=== PATIENT | male | born 1960 | race African-American/Black ===

== ENCOUNTER → 2017-01-13 | Outpatient (CLI) | payer BC ==
[~2017-01-13] MED LIST: ACTOS 15MG TAB15 MG PO; ALDACTONE 25MG25 M1 PO; ASCRIPTIN1 TA1 PO; ASPIRIN E.C. 8181 MG PO; BLOOD SUGAR MED; COZAAR100 MG PO; HYZAAR; LAMISIL AT1%; LAMISIL1% TOP; LASIX 40MG TABL40 MG PO; LEVEMIR FLEXPEN SQ; LEVOTHROID0.125 MG PO; LEVOXYL0.125 MG PO; LOPRESSOR100 MG PO; MAALOX PLUS 3030 ML PO; NITROSTAT0.4 MG/TAB SL; NORVASC 10MG10 MG PO; NOVOLOG FLEX100 U/ML SQ; PHARMASSURE V PO; PRILOSEC 20MG20 MG PO; PRINIVIL10 MG PO; PROTONIX 40MG T40 MG PO; PROTONIX20 MG PO; SYNTHROID0.112 MG/T PO; VITAMIN D32000 IU PO; ZOCOR 10MG10 MG PO; ZOCOR 40MG40 MG PO; ZYLOPRIM 300MG300 MG PO
== END ==
LOC: COL.VAS 12:30
DX: M17.11 Unilateral primary osteoarthritis, right knee (principal); Z96.653 Presence of artificial knee joint, bilateral; M79.604 Pain in right leg; M25.562 Pain in left knee

== ENCOUNTER → 2017-10-14 | Outpatient (CLI) | payer BC ==
[2017-10-14 17:04] LABS: HEMATOCRIT 39.4 % (42.0-52.0); MEAN CELL VOLUME 84 fl (80.0-100.0); MEAN CORPUSCULAR HEMOGLOBIN 28 pg (27.0-31.0); MEAN CORPUSCULAR HGB CONC 33 g/dl (33.0-37.0); MEAN PLATELET VOLUME 11.6 fl (7.4-10.4); PLATELET COUNT 180 K/mm3 (130-400); RED BLOOD COUNT 4.67 M/mm3 (4.20-5.60); REDCELL DISTRIBUTION WIDTH-CV 14.3 % (11.5-14.5)
[2017-10-14 17:11] LABS: URIC ACID 8.7 mg/dL (3.5-8.5)
[2017-10-14 17:20] LABS: C-REACTIVE PROTEIN 0.7 mg/dL (0.0-0.9)
[2017-10-14 17:23] LABS: ERYTHROCYTE SEDIMENTATION RATE 24 mm/hr (0-30)
== END ==
LOC: COL.LAB 16:41
PROVIDERS: Orthopaedic Surgery
DX: M25.562 Pain in left knee (principal); M25.561 Pain in right knee

== ENCOUNTER 2018-02-12 18:53 | Emergency (ER) | payer OTHER, BC ==
[~2018-02-12] VITALS: Ht 188 cm; Wt 114.5 kg
[~2018-02-12 18:53] MED LIST changes: +LEVEMIR FLEX100 U/ML; -LEVEMIR FLEXPEN SQ
[2018-02-12 18:56] VITALS: TEMP 97.7
[2018-02-12 19:32] LABS: BASO % 0.3 % (0.0-2.0); EOS # 0.1 (0.0-0.7); EOS % 1.5 % (0-4.0); GRAN # 3.4 (1.4-6.5); GRAN % 56.6 % (42.2-75.2); HEMOGLOBIN 12.1 g/dl (13.5-18.0); LYMPH % 33.3 % (20.0-51.0); MEAN CELL VOLUME 85 fl (80.0-100.0); MEAN CORPUSCULAR HEMOGLOBIN 28 pg (27.0-31.0); MEAN CORPUSCULAR HGB CONC 33 g/dl (33.0-37.0); MEAN PLATELET VOLUME 12.5 fl (7.4-10.4); MONO # 0.4 (0.1-0.6); MONO % 7.3 % (1.7-9.3); PLATELET COUNT 166 K/mm3 (130-400); RED BLOOD COUNT 4.33 M/mm3 (4.20-5.60); REDCELL DISTRIBUTION WIDTH-CV 14.1 % (11.5-14.5)
[2018-02-12 19:43] LABS: HEMATOCRIT 36.7 % (42.0-52.0)
[2018-02-12 19:45] LABS: INR 0.9 (0.8-3.0); PROTHROMBIN TIME 10.4 SECONDS (9.7-12.8)
[2018-02-12 19:47] LABS: ALANINE AMINOTRANSFERASE 70 U/L (21-72); ALBUMIN 3.8 gm/dL (3.5-5.0); ALKALINE PHOSPHATASE 61 U/L (50-136); ANION GAP 6 mmol/L (7-16); AST,SGOT 75 U/L (15-37); BILIRUBIN,TOTAL 0.3 mg/dL (0.0-1.0); BLOOD UREA NITROGEN 23 mg/dL (9-20); CALCIUM 9.5 mg/dL (8.4-10.2); CARBON DIOXIDE 26 mmol/L (22-30); CHLORIDE 109 mmol/L (98-107); CREATININE, serum 1.27 mg/dL (0.66-1.25); GLUCOSE 118 mg/dL (74-106); POTASSIUM 4.2 mmol/L (3.4-5.0); SODIUM 142 mmol/L (137-145); TOTAL PROTEIN 7.2 gm/dL (6.4-8.2)
[2018-02-12 19:51] LABS: C-REACTIVE PROTEIN 0.5 mg/dL (0.0-0.9)
[2018-02-12 20:00] LABS: TROPONIN-I < 0.012 ng/mL (0.000-0.034)
[2018-02-12 20:07] LABS: ARTERIAL BLD GAS O2 SATURATION 94.1 % (92-100); ARTERIAL BLD GAS TCO2 CT 27.5; ARTERIAL BLOOD GAS BASE EXCESS 0.5 (-2-2); ARTERIAL BLOOD GAS HCO3 26.1 meq/L (22-26); ARTERIAL BLOOD GAS PCO2 45.7 mmHg (35-45); ARTERIAL BLOOD GAS PO2 75.4 mmHg (80-100); ARTERIAL BLOOD GAS pH 7.37 (7.35-7.45)
[2018-02-12] MEDS ORDERED: CAPSAICIN60 GM TP (20:26)
[2018-02-12] MEDS ORDERED: SENOKOT S 50 MG1 TAB PO (20:27)
[2018-02-12] MEDS ORDERED: FLONASE SENSIM9.9 ML NS (20:27)
[2018-02-12] MEDS ORDERED: GLUMETZA1000 MG PO (20:31)
[2018-02-12] MEDS ORDERED: VIAGRA100 M1 (20:33)
[2018-02-12] MEDS ORDERED: SYNTHROID0.112 MG/T PO (20:34)
[2018-02-12] MEDS ORDERED: LEVOXYL0.112 MG PO (20:34)
[2018-02-12] MEDS ORDERED: GLUCOSE4 G1 (20:35)
[2018-02-12] MEDS ORDERED: NORCO 325 MG-51 TAB PO (23:21)
[2018-02-12] MEDS ORDERED: ZITHROMAX Z PA250 MG PO (23:21)
[2018-02-12] MEDS ORDERED: FLEXERIL 1010 MG/TAB PO (23:21)
[2018-02-12 23:51] VITALS: BP 164/92; PULSE 60
== END 2018-02-12 23:51 | disposition home or self-care (01) ==
LOC: COL.ER 18:53
PROVIDERS: Emergency Medicine
DX: J18.9 Pneumonia, unspecified organism (principal); J98.11 Atelectasis; R07.89 Other chest pain; K21.9 Gastro-esophageal reflux disease without esophagitis; I10 Essential (primary) hypertension; E11.9 Type 2 diabetes mellitus without complications; E78.5 Hyperlipidemia, unspecified; E03.9 Hypothyroidism, unspecified; Z86.73 Personal history of transient ischemic attack (TIA), and cerebral infarction without residual deficits; Z87.891 Personal history of nicotine dependence; Z79.4 Long term (current) use of insulin; Z79.84 Long term (current) use of oral hypoglycemic drugs; Z98.890 Other specified postprocedural states
CPT/HCPCS: A4216; A9284; J0696; J2405; J3010; J7030; Q9967

== ENCOUNTER 2018-06-23 15:00 | Outpatient (RCR) | payer BC ==
[~2018-06-23 15:00] MED LIST changes: +CAPSAICIN60 GM TP; +FLEXERIL 1010 MG/TAB PO; +FLONASE SENSIM9.9 ML NS; +GLUCOSE4 G1; +GLUMETZA1000 MG PO; +LEVOXYL0.112 MG PO; +NORCO 325 MG-51 TAB PO; +SENOKOT S 50 MG1 TAB PO; +VIAGRA100 M1; +ZITHROMAX Z PA250 MG PO
[2018-06-25] MEDS ORDERED: INDOCIN 25MG CA25 MG PO (15:46)
[2018-06-25] MEDS ORDERED: NORCO 325 MG-51 TAB PO (15:51)
== END 2018-06-30 | disposition home or self-care (01) ==
LOC: WSC
DX: M25.562 Pain in left knee (principal); M25.561 Pain in right knee; G89.29 Other chronic pain; Z96.653 Presence of artificial knee joint, bilateral; Z98.890 Other specified postprocedural states

== ENCOUNTER 2018-06-25 12:16 | Emergency (ER) | payer OTHER, BC ==
[~2018-06-25] VITALS: Ht 188 cm; Wt 113.6 kg
[2018-06-25 12:25] VITALS: TEMP 100.9
[2018-06-25 12:41] LABS: EOS % 0.8 % (0-4.0); GRAN # 3.7 (1.4-6.5); GRAN % 74.7 % (42.2-75.2); HEMATOCRIT 38.1 % (42.0-52.0); HEMOGLOBIN 12.4 g/dl (13.5-18.0); LYMPH # 0.9 (1.2-3.4); LYMPH % 17.9 % (20.0-51.0); MEAN CELL VOLUME 85 fl (80.0-100.0); MEAN CORPUSCULAR HEMOGLOBIN 28 pg (27.0-31.0); MEAN CORPUSCULAR HGB CONC 33 g/dl (33.0-37.0); MEAN PLATELET VOLUME 12.2 fl (7.4-10.4); MONO # 0.3 (0.1-0.6); PLATELET COUNT 157 K/mm3 (130-400); RED BLOOD COUNT 4.48 M/mm3 (4.20-5.60); REDCELL DISTRIBUTION WIDTH-CV 14.6 % (11.5-14.5)
[2018-06-25 12:50] LABS: ALANINE AMINOTRANSFERASE 53 U/L (21-72); ALBUMIN 3.7 gm/dL (3.5-5.0); ALKALINE PHOSPHATASE 51 U/L (50-136); ANION GAP 8 mmol/L (7-16); AST,SGOT 54 U/L (15-37); BILIRUBIN,TOTAL 0.5 mg/dL (0.0-1.0); BLOOD UREA NITROGEN 21 mg/dL (9-20); CALCIUM 9.6 mg/dL (8.4-10.2); CARBON DIOXIDE 25 mmol/L (22-30); CHLORIDE 104 mmol/L (98-107); CREATININE, serum 1.02 mg/dL (0.66-1.25); GLUCOSE 225 mg/dL (74-106); LIPASE 62 U/L (23-300); POTASSIUM 5.1 mmol/L (3.4-5.0); SODIUM 137 mmol/L (137-145); TOTAL PROTEIN 7.4 gm/dL (6.4-8.2)
[2018-06-25 12:53] LABS: PROTHROMBIN TIME 11.9 SECONDS (9.7-12.8)
[2018-06-25 13:02] LABS: TROPONIN-I < 0.012 ng/mL (0.000-0.035)
[2018-06-25] MEDS ORDERED: INDOCIN 25MG CA25 MG PO (15:46)
[2018-06-25] MEDS ORDERED: NORCO 325 MG-51 TAB PO (15:51)
[2018-06-25 16:01] VITALS: BP 162/85; PULSE 88
== END 2018-06-25 16:02 | disposition home or self-care (01) ==
LOC: COL.ER 12:16
PROVIDERS: Emergency Medicine
DX: K85.90 Acute pancreatitis without necrosis or infection, unspecified (principal); Z79.4 Long term (current) use of insulin; Z79.51 Long term (current) use of inhaled steroids
CPT/HCPCS: J1885; J2270; J7030; Q9967

== ENCOUNTER → 2018-07-05 | Outpatient (CLI) | payer BC ==
[~2018-07-05] MED LIST changes: +INDOCIN 25MG CA25 MG PO
[2018-07-05 16:45] LABS: CREATININE, serum 1.15 mg/dL (0.66-1.25)
== END ==
LOC: COL.LAB 15:51
PROVIDERS: Internal Medicine Interventional Cardiology
DX: I30.9 Acute pericarditis, unspecified (principal)

== ENCOUNTER 2018-07-26 09:49 | Emergency (ER) | payer BC ==
[~2018-07-26] VITALS: Ht 188 cm; Wt 109.1 kg
[2018-07-26 10:16] LABS: BASO % 0.4 % (0.0-2.0); EOS % 1.4 % (0-4.0); GRAN % 69.9 % (42.2-75.2); HEMOGLOBIN 11.7 g/dl (13.5-18.0); LYMPH # 0.6 (1.2-3.4); LYMPH % 20.4 % (20.0-51.0); MEAN CELL VOLUME 85 fl (80.0-100.0); MEAN CORPUSCULAR HEMOGLOBIN 27 pg (27.0-31.0); MEAN CORPUSCULAR HGB CONC 32 g/dl (33.0-37.0); MONO # 0.2 (0.1-0.6); MONO % 6.8 % (1.7-9.3); PLATELET COUNT 250 K/mm3 (130-400); RED BLOOD COUNT 4.34 M/mm3 (4.20-5.60); REDCELL DISTRIBUTION WIDTH-CV 14.5 % (11.5-14.5)
[2018-07-26 10:17] LABS: HEMATOCRIT 36.7 % (42.0-52.0)
[2018-07-26 10:26] LABS: ALANINE AMINOTRANSFERASE 27 U/L (21-72); ALBUMIN 3.7 gm/dL (3.5-5.0); ALKALINE PHOSPHATASE 57 U/L (50-136); ANION GAP 9 mmol/L (7-16); AST,SGOT 45 U/L (15-37); BILIRUBIN,TOTAL 0.5 mg/dL (0.0-1.0); BLOOD UREA NITROGEN 27 mg/dL (9-20); C-REACTIVE PROTEIN 6.1 mg/dL (0.0-0.9); CALCIUM 9.3 mg/dL (8.4-10.2); CARBON DIOXIDE 22 mmol/L (22-30); CHLORIDE 106 mmol/L (98-107); CREATININE, serum 1.18 (0.66-1.25); GLUCOSE 171 mg/dL (74-106); LIPASE 86 U/L (23-300); SODIUM 137 mmol/L (137-145); TOTAL PROTEIN 7.8 gm/dL (6.4-8.2)
[2018-07-26 10:35] LABS: ERYTHROCYTE SEDIMENTATION RATE 90 mm/hr (0-30)
[2018-07-26 10:43] LABS: TROPONIN-I < 0.012 ng/mL (0.000-0.035)
[2018-07-26 15:23] VITALS: BP 126/64; PULSE 80; TEMP 97.5
== END 2018-07-26 15:23 | disposition short-term general hospital (02) ==
LOC: COL.ER 09:49
PROVIDERS: Emergency Medicine
DX: I31.9 Disease of pericardium, unspecified (principal); I10 Essential (primary) hypertension; E11.9 Type 2 diabetes mellitus without complications; I25.10 Atherosclerotic heart disease of native coronary artery without angina pectoris; E78.5 Hyperlipidemia, unspecified; F17.210 Nicotine dependence, cigarettes, uncomplicated; Z79.4 Long term (current) use of insulin
CPT/HCPCS: J1885; J2270; J2405; J7030; Q9967

== ENCOUNTER → 2018-09-02 | Outpatient (CLI) | payer BC | LOC: COL.LAB 11:47 | PROVIDERS: Internal Medicine Pulmonary Disease | DX: R06.02 Shortness of breath (principal) ==

== ENCOUNTER 2021-06-25 11:21 | Emergency (ER) | payer OTHER ==
[~2021-06-25] VITALS: Ht 188 cm; Wt 118.2 kg
[2021-06-25 11:36] VITALS: TEMP 98.3
[2021-06-25 12:29] LABS: BASO % 0.6 % (0.0-2.0); EOS # 0.3 K/mm3 (0.0-0.7); GRAN # 2.6 K/mm3 (1.4-6.5); GRAN % 53.7 % (42.2-75.2); HEMOGLOBIN 10.3 g/dl (13.5-18.0); LYMPH # 1.4 K/mm3 (1.2-3.4); LYMPH % 27.8 % (20.0-51.0); MEAN CELL VOLUME 78 fl (80.0-100.0); MEAN CORPUSCULAR HEMOGLOBIN 23 pg (27-31); MEAN CORPUSCULAR HGB CONC 30 g/dl (33.0-37.0); MEAN PLATELET VOLUME 12.2 fl (7.4-10.4); MONO # 0.6 K/mm3 (0.1-0.6); MONO % 11.5 % (1.7-9.3); PLATELET COUNT 175 K/mm3 (130-400); RED BLOOD COUNT 4.48 M/mm3 (4.20-5.60)
[2021-06-25 12:30] LABS: HEMATOCRIT 34.8 % (42.0-52.0)
[2021-06-25 12:40] LABS: ALBUMIN 3.7 gm/dL (3.4-4.8); BILIRUBIN,TOTAL 0.3 mg/dL (0.2-1.2); CALCIUM 9.1 mg/dL (8.4-10.2); CREATININE, serum 1.03 mg/dL (0.72-1.25); POTASSIUM 4.5 mmol/L (3.5-4.5); TOTAL PROTEIN 7.7 gm/dL (6.2-8.1)
[2021-06-25 14:04] VITALS: BP 139/99; PULSE 67
== END 2021-06-25 14:04 | disposition home or self-care (01) ==
LOC: COL.ER 11:21
PROVIDERS: Emergency Medicine
DX: R05.9 Cough, unspecified (principal)
CPT/HCPCS: Q9967

== ENCOUNTER 2021-10-18 12:31 | Emergency (ER) | payer OTHER ==
[~2021-10-18] VITALS: Ht 188 cm; Wt 118.2 kg
[2021-10-18 13:36] LABS: BASO % 0.8 % (0.0-2.0); EOS # 0.1 K/mm3 (0.0-0.7); EOS % 3.7 % (0.0-4.0); GRAN % 53.2 % (42.2-75.2); HEMATOCRIT 38.8 % (42.0-52.0); HEMOGLOBIN 12.1 g/dl (13.5-18.0); LYMPH # 1.2 K/mm3 (1.2-3.4); MEAN CELL VOLUME 79 fl (80.0-100.0); MEAN CORPUSCULAR HEMOGLOBIN 25 pg (27-31); MEAN CORPUSCULAR HGB CONC 31 g/dl (33.0-37.0); MONO # 0.4 K/mm3 (0.1-0.6); PLATELET COUNT 114 K/mm3 (130-400); REDCELL DISTRIBUTION WIDTH-CV 22.7 % (11.5-14.5)
[2021-10-18 13:49] LABS: ALANINE AMINOTRANSFERASE 43 U/L (0-55); ALBUMIN 3.5 gm/dL (3.4-4.8); ALKALINE PHOSPHATASE 62 U/L (40-150); ANION GAP 8 mmol/L (7-16); AST,SGOT 41 U/L (5-34); BILIRUBIN,TOTAL 0.2 mg/dL (0.2-1.2); BLOOD UREA NITROGEN 18 mg/dL (8-26); CALCIUM 9.1 mg/dL (8.4-10.2); CARBON DIOXIDE 23 mmol/L (23-31); CHLORIDE 108 mmol/L (98-107); CREATININE, serum 1.12 mg/dL (0.72-1.25); GLUCOSE 259 mg/dL (70-99); POTASSIUM 4.5 mmol/L (3.5-4.5); SODIUM 139 mmol/L (136-145); TOTAL PROTEIN 6.7 gm/dL (6.2-8.1)
[2021-10-18 14:02] LABS: TROPONIN-I < 0.010 ng/mL (0.00-0.033)
[2021-10-18 14:48] VITALS: BP 152/80; PULSE 54
--- NOTE | 2021-10-18 15:54 | NUR ---
KEYUR met with patient after ED physician consulted me. SW met with patient who stated that he had a stent placed in February and has been having groin pain since. He states that he has reached out to his surgeon (Dr. Pablo) at [facility] in [place] who tells him to reach out to his PCP. He states that when he reaches out to his PCP they tell him to talk with his surgeon. Patient ultimately feels like he is being passed around. Patient reports that his PCP has placed in a consult for the community care team for a referral to a vascular surgeon but has not heard anything as of yet. [facility] [place] [facility] of [facility]. KEYUR advised that [facility] would [facility] on Wednesday and call him with what i know.
== END 2021-10-18 14:51 | disposition home or self-care (01) ==
LOC: COL.ER 12:31
PROVIDERS: Physician Assistant
DX: I72.4 Aneurysm of artery of lower extremity (principal); R07.9 Chest pain, unspecified; Z28.310 Unvaccinated for COVID-19

== ENCOUNTER 2021-12-02 20:27 | Emergency (ER) | payer OTHER ==
[~2021-12-02] VITALS: Ht 188 cm; Wt 119.5 kg
[2021-12-02 20:42] VITALS: TEMP 98
[2021-12-02 21:49] LABS: BILIRUBIN,TOTAL 0.3 mg/dL (0.2-1.2); CALCIUM 9.5 mg/dL (8.4-10.2); CREATININE, serum 1.22 mg/dL (0.72-1.25); HEMATOCRIT 41.9 % (42.0-52.0); HEMOGLOBIN 13.5 g/dl (13.5-18.0); MEAN CELL VOLUME 83 fl (80.0-100.0); MEAN CORPUSCULAR HEMOGLOBIN 27 pg (27-31); MEAN CORPUSCULAR HGB CONC 32 g/dl (33.0-37.0); PLATELET COUNT 110 K/mm3 (130-400); POTASSIUM 4.5 mmol/L (3.5-4.5); RED BLOOD COUNT 5.03 M/mm3 (4.20-5.60); REDCELL DISTRIBUTION WIDTH-CV 18.9 % (11.5-14.5); TOTAL PROTEIN 7.1 gm/dL (6.2-8.1)
[2021-12-02 21:54] LABS: TROPONIN-I 0.015 ng/mL (0.00-0.033)
[2021-12-02 22:08] LABS: ALBUMIN 3.7 gm/dL (3.4-4.8)
[2021-12-02 22:50] LABS: BAND 3 % (0-10); EOSINOPHIL 3 % (0-4); LYMPHOCYTE 31 % (20.0-51.0); NEUTROPHILS 52 % (42.0-75.2)
[2021-12-02 22:55] LABS: ANISOCYTOSIS 2+; HYPOCHROMIA 1+; PLATELET ESTIMATE NORMAL (NORMAL); TEAR DROP CELLS 1+
[2021-12-03] MEDS ORDERED: FLEXERIL 1010 MG/TAB PO (00:12)
[2021-12-03] MEDS ORDERED: LIDODERM 5% PATC1 EA TP (00:12)
[2021-12-03 00:16] VITALS: BP 185/91; PULSE 58
== END 2021-12-03 00:25 | disposition home or self-care (01) ==
LOC: COL.ER 20:27
PROVIDERS: Emergency Medicine
DX: S39.012A Strain of muscle, fascia and tendon of lower back, initial encounter (principal); S39.011A Strain of muscle, fascia and tendon of abdomen, initial encounter; R07.89 Other chest pain; Z86.73 Personal history of transient ischemic attack (TIA), and cerebral infarction without residual deficits; Z95.5 Presence of coronary angioplasty implant and graft; Z79.02 Long term (current) use of antithrombotics/antiplatelets; Z79.01 Long term (current) use of anticoagulants; V48.5XXA Car driver injured in noncollision transport accident in traffic accident, initial encounter; Y92.410 Unspecified street and highway as the place of occurrence of the external cause
CPT/HCPCS: J1885; J2360; Q9967

== ENCOUNTER → 2022-12-03 | Outpatient (CLI) | payer OTHER ==
[~2022-12-03] MED LIST changes: +LIDODERM 5% PATC1 EA TP
== END ==
LOC: COL.RAD 14:20
DX: M25.511 Pain in right shoulder (principal); M25.512 Pain in left shoulder

== ENCOUNTER 2023-10-01 09:09 | Day surgery (SDC) | payer OTHER ==
[2023-10-01] VITALS (7 sets, daily range): BP systolic 119–138; BP diastolic 63–77; PULSE 62–74; TEMP 97–97.7
[~2023-10-01] VITALS: Ht 188 cm; Wt 118.2 kg
[~2023-10-01 09:09] MED LIST changes: +ASPIRIN 81M81 MG/TA2 PO; +CAVERJECT20 MCG INTRACAVER; +COREG 25MG25 MG/TAB PO; +COZAAR 50MG50 MG/TAB PO; +CRESTOR40 MG PO; +ELIQUIS 5MG PO; +FLOMAX 0.40.4 MG/CAP PO; +Famotidine 20 MG TAB PO SCH; +IMDUR 30MG30 MG/TAB PO; +INSULIN GL100 UNIT/2 SQ; +IRON TABLETS325 MG PO; +MASON NATURAL2000 IU PO; +MYFORTIC360 MG PO; +Meclizine 25 MG TAB PO SCH; +NEURONTIN600 MG/TAB PO; +NS 1,000 ML IV SCH; +ORAJEL MM; +PLAQUENIL 200M200 MG PO; +PROAIR HFA0.09 MG/AC IH; +SINGULAIR 110 MG/TAB PO; +SODIUM FLUORID100 ML DT; +SYNTHROID0.125 MG/T PO; +ZETIA 10MG TAB10 MG PO
[2023-10-01] MEDS ORDERED: Ondansetron 4 MG/2 ML VIAL ONE (09:48)
[2023-10-01] MEDS ORDERED: dexAMETHasone 10 MG/ML VIAL ONE (09:48)
[2023-10-01] MEDS ORDERED: Lidocaine PF 2% (20 MG/ML) 5 ML VIAL ONE (09:48)
[2023-10-01] MEDS ORDERED: Midazolam 2 MG/2 ML VIAL ONE (09:49)
[2023-10-01] MEDS ORDERED: fentaNYL 50 MCG/ML 2 ML VIAL ONE ×2 (09:49→14:50)
[2023-10-01] MEDS ORDERED: COLCRYS0.6 MG PO (10:16)
--- NOTE | 2023-10-01 12:21 | NUR ---
0944 Patient ambulatory to bay 2 with steady gait, breathing even and unlabored. Pt is alert and oriented, accompanied by his . Consents reviewed and signed by the patient. IV established. LR infusion via gravity at [facility]. Call light in reach. Warm blanket provided.
[2023-10-01] MEDS ORDERED: oxyCODONE/Acetaminophen 5-325 MG TAB PO PRN (13:15)
[2023-10-01] MEDS ORDERED: droPERidol 2.5 MG/ML 2 ML VIAL IV PRN (13:45)
[2023-10-01] MEDS ORDERED: fentaNYL 50 MCG/ML 1 ML SYRINGE/VIAL [PACU/SDC ONLY] IV PRN (13:45)
[2023-10-01] MEDS ORDERED: Meperidine 50 MG/ML 1 ML VIAL IV PRN (13:45)
[2023-10-01] MEDS ORDERED: Morphine 2 MG/1 ML VIAL [PACU/SDC ONLY] IV PRN (13:45)
[2023-10-01] MEDS ORDERED: Ondansetron 4 MG/2 ML VIAL IV PRN (13:45)
[2023-10-01] MEDS ORDERED: ePHEDrine 50 MG/ML VIAL ONE (14:03)
[2023-10-01] MEDS ORDERED: LR 1,000 ML IV ONE (15:08)
--- NOTE | 2023-10-01 16:35 | NUR ---
Report received from REVENUE ANALYST, Nilsa. Pt brought via cart back to [facility]. Upon returning, pt had nause then vomiting. Pt had moderate amount of emesis into sick bag. After stopping vomiting, pt given cool rag for neck, new sick bag, HOB elevated. VSS-see flowsheet. Pt on 2 L via NC as he is still drowsy. Side rails up. Lights dimmed for minimal stimulation. LH IV patent with IVF infusing via gravity tubing. Pts dressings to RUE bulky, clean, dry and intact. RUE abduction sling in place. Pt unable to yet feel touch to fingers or move them on command. Warm and cap refill <3 sec.
--- NOTE | 2023-10-01 17:30 | NUR ---
VS remain stable-see flowsheet. Pts son and brought to room. Pt not having more emesis since arrival to bay post op. Able to wiggle fingers some, reports feeling tingling in right hand. Sling and ice pack remain in place. Pt given sprite per request. HOB remains elevated and pt denies needs at this time.
--- NOTE | 2023-10-01 19:17 | NUR ---
Pt voided. Tolerated oral intake. Pain controlled-absent currently with block still in effect. Pts IV removed, pressure dressing applied. Pt dressed with assistance, and abductor sling in place. Discharge teaching completed, pts verbalized understanding. Pt taken via wheelchair to ED exit for dc home via private vehicle with driving and son present also.
== END 2023-10-01 19:18 | disposition home or self-care (01) ==
LOC: SDCO 09:09
DX: M75.121 Complete rotator cuff tear or rupture of right shoulder, not specified as traumatic (principal); M75.01 Adhesive capsulitis of right shoulder; M75.21 Bicipital tendinitis, right shoulder; M25.811 Other specified joint disorders, right shoulder; M19.011 Primary osteoarthritis, right shoulder; E11.9 Type 2 diabetes mellitus without complications; I48.91 Unspecified atrial fibrillation; Z79.01 Long term (current) use of anticoagulants; Z79.4 Long term (current) use of insulin; Z95.5 Presence of coronary angioplasty implant and graft; Z95.0 Presence of cardiac pacemaker; Z85.850 Personal history of malignant neoplasm of thyroid
CPT/HCPCS: A4566; A4619; C1713; J0690; J1100; J2250; J2405; J2704; J2795; J3010; J7030; J7120